=== PATIENT | female | born 1985 | race African-American/Black ===

== ENCOUNTER 2022-05-27 09:54 | Emergency (ER) | payer OTHER ==
[2022-05-27 10:07] VITALS: BP 110/71; PULSE 86; TEMP 99.5; BMI 22.4
[2022-05-27] MEDS ORDERED: diphenhydrAMINE HCL 25 MG CAPSULE (FP) PO ONE ×2 (11:02→11:05)
[2022-05-27] MEDS ORDERED: predniSONE 20 MG TABLET (UD) PO ONE (11:02)
[2022-05-27] MEDS ORDERED: predniSONE 20 MG TABLET (UD) ONE (11:05)
== END 2022-05-27 11:36 | disposition home or self-care (01) ==
LOC: FER 09:54
DX: R21 Rash and other nonspecific skin eruption (principal)
CPT/HCPCS: 99283-25